=== PATIENT | male | born 1995 | race Caucasian/White ===

== ENCOUNTER 2018-10-18 12:25 | Inpatient (IN) | payer BC ==
[2018-10-18 14:05] VITALS: BP 138/85
[2018-10-18] MEDS ORDERED: KEFLEX500 MG PO (14:27)
[2018-10-18] MEDS ORDERED: HYDROCODON-ACE1 EAC7 PO (14:27)
[2018-10-18] MEDS ORDERED: SILVADENE20 GM TP (14:28)
[2018-10-18 15:56] VITALS: BP 140/97
--- NOTE | 2018-10-18 15:57 | NUR ---
VOIDED 900 ML CLEAR YELLOW URINE
[2018-10-18 16:34] LABS: BASOPHILS 0.6 % (0-2); EOSINOPHILS 3.5 % (0-7); HEMATOCRIT 36.5 % (42.0-54.0); IMMATURE GRANULOCYTES 0.4 % (0-5); LYMPHOCYTES 29.1 % (15-50); MCH 27.8 pg (26.0-34.0); MCHC 35.6 g/dL (31.0-37.0); MCV 78.2 fL (80.0-100.0); MEAN PLATELET VOLUME 8.9 fL (7.4-10.4); MONOCYTES 6.8 % (2-11); NEUTROPHILS 59.6 % (40-80); PLATELET COUNT 216 10x3/uL (130-400); RBC 4.67 10x6/uL (4.20-6.10); RDW 13.2 % (11.5-14.5); WBC 10.4 10x3/uL (4.8-10.8)
[2018-10-18 16:53] LABS: ALBUMIN 3.4 g/dL (3.4-5.0); ALKALINE PHOSPHATASE 87 U/L (46-116); ALT (SGPT) 22 U/L (10-68); C-REACTIVE PROTEIN 1.5 mg/dL (0.0-0.9); CALC OSMOLALITY 281 mosm/kg (275-300); CARBON DIOXIDE 26.1 mmol/L (21.0-32.0); CHLORIDE - SERUM 108 mmol/L (98-107); CREATININE - SERUM 0.8 mg/dL (0.6-1.3); GLUCOSE 89 mg/dL (74-106); POTASSIUM - SERUM 3.5 mmol/L (3.5-5.1); PROTEIN - SERUM 6.5 g/dL (6.4-8.2); SODIUM 142 mmol/L (136-145); UREA NITROGEN 12 mg/dL (7-18); eGFR NON AFRICAN AMERICAN > 90 mL/min (90-120)
[2018-10-18 17:15] VITALS: BP 145/85
--- NOTE | 2018-10-18 18:13 | NUR ---
BILAT LOWER LEGS CLEANSED AND BACTROBAN AND SILVADENE OINMENT AND DRY DRSGS APPLIED. SILVADENE AND DRY DRSG APPLIED TO BILAT UPPER ARMS
[2018-10-18 18:45] VITALS: BP 136/87
--- NOTE | 2018-10-18 18:46 | NUR ---
REPORT CALLED TO [facility] BY SBAR FORMAT
[2018-10-18 23:23] VITALS: BP 135/83; BMI 32.0
[2018-10-19 00:33] VITALS: BP 107/71
--- NOTE | 2018-10-19 01:14 | NUR ---
PT RESTING IN BED. EYES CLOSED. NO SIGNS OF DISTRESS. BREATHING EVEN AND UNLABORED. WILL CONTINUE PLAN OF CARE. CALL LIGHT IN REACH. BED LOWERED AND LOCKED.
[2018-10-19 04:39] VITALS: BP 114/71
[2018-10-19 07:32] VITALS: BMI 31.9
[2018-10-19 09:06] VITALS: BP 116/71
[2018-10-19 12:18] LABS: % SATURATION 22 % (15-55); IRON 63 ug/dl (35-150); TOTAL IRON BIND CAPACITY 286 ug/dl (260-445); UNSAT IRON BIND CAPACITY 223 ug/dl (150-375)
[2018-10-19 12:27] VITALS: BP 106/55
[2018-10-19 12:32] LABS: FERRITIN 123 ng/mL (3-244); LDH 138 U/L (85-227)
[2018-10-19 14:08] LABS: APPEARANCE CLEAR (CLEAR); COLOR STRAW (YELLOW); SPECIFIC GRAVITY 1.015 (1.005-1.020)
[2018-10-19 14:09] LABS: BILIRUBIN NEGATIVE (NEGATIVE); GLUCOSE NEGATIVE (NEGATIVE); KETONE NEGATIVE (NEGATIVE); NITRITE NEGATIVE (NEGATIVE); PROTEIN NEGATIVE (NEGATIVE); UROBILINOGEN NORMAL (NORMAL)
[2018-10-19 16:44] VITALS: BP 98/60
--- NOTE | 2018-10-19 18:19 | NUR ---
I have reviewed this patient and I concur with the Shift Assessment completed by the Licensed Practical Nurse today this shift.
--- NOTE | 2018-10-19 19:45 | NUR ---
PT SITTING UP IN BED, WITHOUT DISTRESS. ALERT AND ORIENTED. STATES PAIN 5/10 AT THIS TIME. IV RIGHT AC INFUSING NS @ 73 WITH MORPHINE OCCUPATIONAL HYGIENIST, PT USING NEEDED. BILAT ARMS, CHEST AND BACK RED. BLISTERS TO BILAT ARMS. PEELING SKIN ON FOREHEAD. BILAT LEGS WRAPPED IN DRESSINGS, CDI. DENIES NEEDS AT THIS TIME. CL IN REACH, WILL CTM
[2018-10-19 20:28] VITALS: BP 105/57
[2018-10-20 00:31] VITALS: BP 101/53
[2018-10-20 05:45] LABS: BASOPHILS 1.3 % (0-2); EOSINOPHILS 4.9 % (0-7); HEMATOCRIT 36.9 % (42.0-54.0); HEMOGLOBIN 12.9 g/dL (13.5-17.5); IMMATURE GRANULOCYTES 0.1 % (0-5); LYMPHOCYTES 42.4 % (15-50); MCH 27.9 pg (26.0-34.0); MCV 79.7 fL (80.0-100.0); MEAN PLATELET VOLUME 8.9 fL (7.4-10.4); NEUTROPHILS 44.3 % (40-80); PLATELET COUNT 220 10x3/uL (130-400); RBC 4.63 10x6/uL (4.20-6.10); RDW 13.3 % (11.5-14.5); WBC 7.7 10x3/uL (4.8-10.8)
[2018-10-20 06:22] LABS: CALC OSMOLALITY 277 mosm/kg (275-300); CALCIUM 7.9 mg/dL (8.5-10.1); CARBON DIOXIDE 29.1 mmol/L (21.0-32.0); CHLORIDE - SERUM 106 mmol/L (98-107); CREATININE - SERUM 0.9 mg/dL (0.6-1.3); GLUCOSE 85 mg/dL (74-106); POTASSIUM - SERUM 3.6 mmol/L (3.5-5.1); SODIUM 141 mmol/L (136-145); eGFR NON AFRICAN AMERICAN > 90 mL/min (90-120)
[2018-10-20 06:23] LABS: UREA NITROGEN 8 mg/dL (7-18)
--- NOTE | 2018-10-20 09:00 | NUR ---
ALERT AND ORIENTED WITH DRESSING CHANGED TO BLE PER ORDERS. NORCO GIVEN PRN FOR PAIN AND EFFECTIVE. IVF INFUSING AT PRESCRIBED RATE. ENCOURAGED TO USE CALL LIGHT FOR ASSSIT
[2018-10-20 09:39] VITALS: BP 118/63
[2018-10-20 11:38] VITALS: BMI 31.9
[2018-10-20] MEDS ORDERED: SILVADENE20 GM TOPICAL (14:12)
[2018-10-20] MEDS ORDERED: ACETAMINOPHEN325 MG PO (14:13)
[2018-10-20 14:17] VITALS: BP 113/51; BP 114/55
--- NOTE | 2018-10-20 16:29 | NUR ---
PT DISCHARGED UNDER THE CARE OF FAMILY. VERBALIZED UNDERSTANDING OF DISCHARGE INSTRUCTONS. IV DISCONTINUED AND STABLE AT THIS TIME.
[2018-10-23 09:16] LABS: FOLATE (FOLIC ACID) - SERUM 7.7 ng/mL (>3.0)
== END 2018-10-20 16:30 | disposition home health service (06) | DRG 607 ==
LOC: D.ER 12:25 → D.MS 17:25
PROVIDERS: Emergency Medicine; ADMIT Internal Medicine Nephrology; ATTEND Internal Medicine Nephrology
DX: L55.1 Sunburn of second degree (principal); D50.9 Iron deficiency anemia, unspecified; F17.210 Nicotine dependence, cigarettes, uncomplicated